=== PATIENT | female | born 1990 | race African-American/Black ===

== ENCOUNTER 2017-08-08 02:37 | Emergency (ER) | payer OTHER ==
[~2017-08-08] VITALS: Ht 160 cm; Wt 72.1 kg
[2017-08-08 02:41] VITALS: BP 114/66; Ht 160 cm; Wt 72.1 kg
== END 2017-08-08 05:02 | disposition left against medical advice (07) ==
LOC: ED 02:37
DX: Z53.21 Procedure and treatment not carried out due to patient leaving prior to being seen by health care provider (principal)